=== PATIENT | male | born 1950 | race Two or more races ===

== ENCOUNTER 2024-06-10 15:26 | Inpatient (IN) | payer OTHER ==
[2024-06-10 15:45] VITALS: BMI 21.7
[2024-06-10] MEDS ORDERED: NALOXONE (NARCAN) HCL 4 MG/0.1 ML SPRAY NS PRN (16:32)
[2024-06-10] MEDS ORDERED: IBUPROFEN 400 MG TABLET (FP) PO PRN (16:32)
[2024-06-10] MEDS ORDERED: guaiFENesin 600 MG TABLET.ER (FP) PO PRN (16:32)
[2024-06-10] MEDS ORDERED: MAGNESIUM HYDROX 2400MG/30ML ORAL SUSPENSION 30 ML CUP PO PRN (16:32)
[2024-06-10] MEDS ORDERED: BENZONATATE 200 MG CAPSULE PO PRN (16:32)
[2024-06-10] MEDS ORDERED: POLYETHYLENE GLYCOL (HEALTHYLAX) 3350 17 GM PACKET PO PRN (16:32)
[2024-06-10] MEDS ORDERED: DOCUSATE SODIUM 100 MG CAPSULE (FP) PO PRN (16:32)
[2024-06-10] MEDS ORDERED: NICOTINE POLACRILEX 2 MG GUM BUC PRN (16:32)
[2024-06-10] MEDS ORDERED: LOPERAMIDE HCL 2 MG CAPSULE PO PRN (16:32)
[2024-06-10] MEDS ORDERED: NICOTINE POLACRILEX 2 MG LOZENGE BC PRN (16:32)
[2024-06-10] MEDS ORDERED: IBUPROFEN 600 MG TABLET (FP) PO PRN (16:32)
[2024-06-10] MEDS ORDERED: TUBERCULIN PPD 5 TU/0.1ML VIAL ID ONE (18:24)
[2024-06-10] MEDS: amLODIPine BESYLATE 5 MG TABLET (FP) PO SCH (19:09)
[2024-06-10] MEDS: TUBERCULIN PPD 5 TU/0.1ML SYRINGE (IN PATIENT USE ONLY) ID ONE (20:09)
[2024-06-10] MEDS ORDERED: ATORVASTATIN CA 40 MG TABLET (FP) ONE (21:01)
[2024-06-10] MEDS: FLUTICASONE/SALMETEROL (WIXELA) 100 MCG/50 MCG DISKUS IH SCH (21:13)
[2024-06-10] MEDS: THIAMINE 100 MG TABLET PO SCH (21:14)
[2024-06-10] MEDS: MELATONIN 5 MG TABLETS PO SCH (21:14)
[2024-06-10] MEDS: MONTELUKAST NA 10 MG TABLET PO SCH (21:14)
[2024-06-10] MEDS: APIXABAN 5 MG TABLET PO SCH (21:14)
[2024-06-10] MEDS: LATANOPROST 0.005% OPHTH SOLN 2.5ML BOTTLE OU SCH (21:15)
[2024-06-10] MEDS: ATORVASTATIN CA 80 MG TABLET (FP) PO SCH (21:15)
[2024-06-11] MEDS: metFORMIN HCL 500 MG TABLET (FP) PO SCH (06:19)
[2024-06-11] MEDS ORDERED: metFORMIN HCL 500 MG TABLET (FP) PO SCH (07:00)
[2024-06-11 09:17] LABS: POTASSIUM 3.8 mmol/L (3.5-5.1)
[2024-06-11 09:20] LABS: HEMATOCRIT 43.6 % (35.4-49); HEMOGLOBIN 14.4 GM/dL (11.7-16.9); MCH 27.5 pg (25.7-33.7); MEAN CELL VOLUME 83.4 fl (80-96); MEAN PLT VOLUME 8.8 fl (7.5-11.1); PLATELET COUNT 195 10^3/uL (134-434); RBC 5.23 M/mm3 (4.00-5.60); RDW 15.5 % (11.9-15.9); WHITE BLOOD COUNT 6.5 K/mm3 (4.0-10.0)
[2024-06-11 09:24] LABS: ALBUMIN 3.1 g/dl (3.4-5.0); CREATININE 0.8 mg/dL (0.55-1.3)
[2024-06-11 09:26] LABS: BILIRUBIN,TOTAL 0.4 mg/dL (0.2-1); TOT PROT 6.1 g/dl (6.4-8.2)
[2024-06-11 09:27] LABS: CALCIUM 8.2 mg/dL (8.5-10.1)
[2024-06-11 09:27] LABS: PH,URINE 6.5 (5.0-8.0); URINE APPEARANCE CLEAR; URINE BILIRUBIN NEGATIVE (NEGATIVE); URINE COLOR YELLOW; URINE GLUCOSE (UA) NEGATIVE (NEGATIVE); URINE KETONE NEGATIVE (NEGATIVE); URINE LEUK ESTERASE NEGATIVE (NEGATIVE); URINE NITRITE NEGATIVE (NEGATIVE); URINE PROTEIN NEGATIVE (NEGATIVE)
[2024-06-11] MEDS: PRENATAL VITAMINS W/ FOLIC ACID TABLET (FP) PO SCH (09:50)
[2024-06-11] MEDS: metoPROLOL SUCCINATE 25 MG TAB.SR.24H (FP) PO SCH (10:36)
[2024-06-11] MEDS ORDERED: ATORVASTATIN CA 40 MG TABLET (FP) ONE (19:23)
[2024-06-12] MEDS ORDERED: INSULIN (NOVOLOG) ASPART 100 UNITS/ML 10ML VIAL ONE (16:20)
[2024-06-12] MEDS ORDERED: ATORVASTATIN CA 40 MG TABLET (FP) ONE (19:21)
[2024-06-13] MEDS: ACETAMINOPHEN 325 MG TABLET (FP) PO PRN (09:34)
[2024-06-13] MEDS ORDERED: ATORVASTATIN CA 40 MG TABLET (FP) ONE (20:51)
[2024-06-14] MEDS ORDERED: ATORVASTATIN CA 40 MG TABLET (FP) ONE (19:30)
[2024-06-15] MEDS ORDERED: BUPRENORPHINE HCL 150 MCG, BUPRENORPHINE HCL 75 MCG BC PRN (13:02)
[2024-06-15] MEDS ORDERED: amLODIPine BESYLATE 5 MG TABLET (FP) PO SCH (13:03)
[2024-06-15] MEDS: LISINOPRIL 20 MG TABLET PO SCH (14:08)
[2024-06-15] MEDS: BUPRENORPHINE HCL 150 MCG, BUPRENORPHINE HCL 75 MCG BC ONE (14:09)
[2024-06-15] MEDS ORDERED: ATORVASTATIN CA 40 MG TABLET (FP) ONE (20:18)
[2024-06-15] MEDS: BACLOFEN 10 MG TABLET (FP) PO SCH (21:13)
[2024-06-16] MEDS ORDERED: BUPRENORPHINE HCL 150 MCG, BUPRENORPHINE HCL 75 MCG BC PRN
[2024-06-16] MEDS: amLODIPine BESYLATE 10 MG TABLET (FP) PO SCH (06:04)
[2024-06-16] MEDS: BUPRENORPHINE HCL 150 MCG, BUPRENORPHINE HCL 75 MCG BC SCH (06:04)
[2024-06-16] MEDS: TAMSULOSIN HCL 0.4 MG CAP PO SCH (08:20)
[2024-06-16] MEDS: ALBUTEROL SO4 HFA INHALER IH PRN (19:19)
[2024-06-16] MEDS: P-EPHED 60MG/TRIPROLIDI 2.5MG TABLET PO PRN (19:19)
[2024-06-16] MEDS: BENZOCAINE/MENTHOL (CHLORASEPTIC ) LOZENGE MM PRN (19:19)
[2024-06-17] MEDS: BUPRENORPHINE HCL 450 MCG FILM BC SCH (06:15)
[2024-06-17] MEDS ORDERED: OXYMETAZOLINE 0.05% NASAL SOLUTION 15 ML BOTTLE NS PRN (09:22)
[2024-06-17] MEDS: BENZONATATE 200 MG CAPSULE PO PRN (09:38)
[2024-06-17] MEDS ORDERED: ATORVASTATIN CA 40 MG TABLET (FP) ONE (20:48)
[2024-06-17] MEDS: AMOX TR/POT CLAV 875MG/125MG TABLETS (FP) PO ONE (21:44)
[2024-06-18] MEDS: BUPRENORPHINE/NALOXONE 4 MG/1 MG FILM PACKET SL SCH (07:00)
[2024-06-18] MEDS: AMOX TR/POT CLAV 875MG/125MG TABLETS (FP) PO SCH (07:03)
[2024-06-18] MEDS: guaiFENesin 600 MG TABLET.ER (FP) PO PRN (07:06)
[2024-06-18] MEDS: ALBUTEROL SO4 2.5/IPRATROPIUM 0.5 INH SOL 3 ML VIAL.NEB. NEB SCH (13:00)
[2024-06-18] MEDS ORDERED: ATORVASTATIN CA 40 MG TABLET (FP) ONE (20:13)
[2024-06-19] MEDS: BUPRENORPHINE/NALOXONE 4 MG/1 MG FILM PACKET SL SCH (09:03)
[2024-06-19] MEDS: MAG HYDROX/AL HYDROX/SIMETH 30 ML UNIT-DOSE CUP PO PRN (23:30)
[2024-06-20] MEDS: guaiFENesin 600 MG TABLET.ER (FP) PO PRN (11:01)
[2024-06-21] MEDS: BENZONATATE 200 MG CAPSULE PO PRN (05:46)
[2024-06-21] MEDS: VITAMINS A AND D TOPICAL OINTMENT TP SCH (15:25)
[2024-06-21] MEDS ORDERED: ATORVASTATIN CA 40 MG TABLET (FP) ONE (19:21)
[2024-06-22] MEDS ORDERED: ATORVASTATIN CA 40 MG TABLET (FP) ONE (20:05)
[2024-06-23] MEDS ORDERED: ATORVASTATIN CA 40 MG TABLET (FP) ONE (20:06)
[2024-06-24] MEDS ORDERED: ATORVASTATIN CA 40 MG TABLET (FP) ONE (20:12)
[2024-06-25] MEDS: VITAMINS A AND D TOPICAL OINTMENT TP PRN (10:14)
[2024-06-25] MEDS ORDERED: ATORVASTATIN CA 40 MG TABLET (FP) ONE (19:59)
[2024-06-25] MEDS: BACLOFEN 10 MG TABLET (FP) PO PRN (21:11)
[2024-06-26] MEDS: BUPRENORPHINE/NALOXONE 2 MG/0.5 MG FILM PACKET SL ONE (09:02)
[2024-06-26] MEDS ORDERED: ATORVASTATIN CA 40 MG TABLET (FP) ONE (19:14)
[2024-06-26] MEDS: BUPRENORPHINE/NALOXONE 2 MG/0.5 MG FILM PACKET SL SCH (21:39)
[2024-06-27] MEDS ORDERED: ATORVASTATIN CA 40 MG TABLET (FP) ONE (19:34)
[2024-06-27] MEDS: BUPRENORPHINE/NALOXONE 2 MG/0.5 MG FILM PACKET SL SCH (21:36)
[2024-06-28] MEDS ORDERED: ATORVASTATIN CA 40 MG TABLET (FP) ONE (18:47)
[2024-06-29] MEDS: BISACODYL 5 MG TABLET.DR (FP) PO PRN (06:17)
[2024-06-29] MEDS ORDERED: ATORVASTATIN CA 40 MG TABLET (FP) ONE (19:53)
[2024-06-30] MEDS ORDERED: ATORVASTATIN CA 40 MG TABLET (FP) ONE (19:49)
[2024-06-30] MEDS: BUPRENORPHINE/NALOXONE 2 MG/0.5 MG FILM PACKET SL SCH (21:04)
[2024-07-01] MEDS ORDERED: ATORVASTATIN CA 40 MG TABLET (FP) ONE (19:32)
[2024-07-02] MEDS ORDERED: ATORVASTATIN CA 40 MG TABLET (FP) ONE (19:31)
[2024-07-03] MEDS ORDERED: ATORVASTATIN CA 40 MG TABLET (FP) ONE (19:56)
[2024-07-04] MEDS ORDERED: ATORVASTATIN CA 40 MG TABLET (FP) ONE (19:31)
[2024-07-05] MEDS ORDERED: ATORVASTATIN CA 40 MG TABLET (FP) ONE (19:21)
[2024-07-06 06:47] VITALS: RESP 18
[2024-07-06] MEDS ORDERED: ATORVASTATIN CA 40 MG TABLET (FP) ONE (19:21)
[2024-07-07 06:44] VITALS: TEMP 98.1
[2024-07-07 09:14] VITALS: BP 130/75; PULSE 67
== END 2024-07-07 14:35 | disposition home or self-care (01) | DRG 895 ==
LOC: YASAS 15:26 → Y5N 17:22
PROVIDERS: ADMIT Psychiatry & Neurology Pain Medicine; ATTEND Psychiatry & Neurology Pain Medicine
PROC: HZ42ZZZ Group Counseling for Substance Abuse Treatment, Cognitive-Behavioral (ICD-10-PCS; principal; 2024-06-10)
DX: F14.20 Cocaine dependence, uncomplicated (principal); Z59.00 Homelessness unspecified; F12.20 Cannabis dependence, uncomplicated; F17.210 Nicotine dependence, cigarettes, uncomplicated; F32.A Depression, unspecified; I10 Essential (primary) hypertension; E78.5 Hyperlipidemia, unspecified; E11.9 Type 2 diabetes mellitus without complications; Z79.84 Long term (current) use of oral hypoglycemic drugs; H40.9 Unspecified glaucoma; J45.909 Unspecified asthma, uncomplicated; Z99.89 Dependence on other enabling machines and devices; Z86.73 Personal history of transient ischemic attack (TIA), and cerebral infarction without residual deficits
CPT/HCPCS: 0241U-QW; 36415; 71046-TC-FY; 80053; 80305; 80307; 81003; 82962; 85027; 86780; 87811; 93005; 93010; 94640; J0475

== ENCOUNTER 2024-06-24 09:06 | Emergency (ER) | payer OTHER ==
[2024-06-24 10:01] LABS: BASO % 0.7 % (0-2.0); EOS % 1.8 % (0-4.5); HEMATOCRIT 42.7 % (35.4-49); HEMOGLOBIN 13.6 GM/dL (11.7-16.9); LYMPH % 34.3 % (8-40); MCH 26.4 pg (25.7-33.7); MCHC 31.8 g/dl (32.0-35.9); MEAN PLT VOLUME 8.1 fl (7.5-11.1); MONO % 10.3 % (3.8-10.2); NEUT % 52.9 % (42.8-82.8); PLATELET COUNT 243 10^3/uL (134-434); RBC 5.15 M/mm3 (4.00-5.60); RDW 14.7 % (11.9-15.9); WHITE BLOOD COUNT 5.6 K/mm3 (4.0-10.0)
[2024-06-24 10:07] LABS: INR 1.32 (0.83-1.09); PROTHROMBIN TIME (PATIENT) 14.4 SEC (9.7-13.0)
[2024-06-24 10:10] LABS: ACTIVATED PTT 34.8 SECONDS (25.2-36.5)
[2024-06-24 10:28] LABS: CHLORIDE 104 mmol/L (98-107); POTASSIUM 4.1 mmol/L (3.5-5.1); SODIUM 137 mmol/L (136-145)
[2024-06-24 10:30] LABS: CALCIUM 8.5 mg/dL (8.5-10.1)
[2024-06-24 10:31] LABS: ALBUMIN 3.4 g/dl (3.4-5.0); ANION GAP 5 mmol/L (4-13); BLOOD UREA NITROGEN 12.8 mg/dL (7-18); CO2 29 mmol/L (21-32); GLUCOSE,RANDOM 86 mg/dL (74-106); MAGNESIUM 1.7 mg/dL (1.8-2.4)
[2024-06-24 10:34] LABS: CREATININE 0.8 mg/dL (0.55-1.3); SGOT/AST 18 U/L (15-37); SGPT/ALT 18 U/L (13-61)
[2024-06-24 10:36] LABS: BILIRUBIN,TOTAL 0.6 mg/dL (0.2-1); TOT PROT 6.9 g/dl (6.4-8.2)
[2024-06-24 10:37] LABS: ALK PHOS 86 U/L (45-117)
[2024-06-24 11:19] VITALS: RESP 17; TEMP 98.1; BMI 22.6
[2024-06-24 13:08] VITALS: BP 146/97; PULSE 70
== END 2024-06-24 13:17 | disposition home or self-care (01) ==
LOC: JER 09:06
DX: R07.89 Other chest pain (principal); R42 Dizziness and giddiness; R11.0 Nausea
CPT/HCPCS: 36415; 71045-TC-FY; 80053; 83735; 84484; 85025; 85610; 85730; 93005; 93010; 99285-25